=== PATIENT | female | born 1960 | race Caucasian/White ===

== ENCOUNTER 2016-10-21 11:36 | Emergency (ER) | payer BC ==
[~2016-10-21] VITALS: Ht 157.5 cm; Wt 69.8 kg
[~2016-10-21 11:36] MED LIST: ACET-1256 PO; ALBUAER19 INH; AMOX500C3 PO; ASPI81TA28 PO; ATOR-24 PO; BCTROWC TOP; DIPH25CA65 PO; LAMO200T38 PO; MONT1TAB3 PO; NZRCR TOP; OXYB5TAB74 PO; PRED20TA PO; PSEU30TA20 PO; QUET1TAB30 PO; TRIA1SPR4
[2016-10-21 11:47] VITALS: TEMP 37.2; O2SAT 97; Ht 157.5 cm; Wt 69.8 kg
[2016-10-21] MEDS ORDERED: DFL150 PO (12:23)
[2016-10-21] MEDS ORDERED: ATOR-54 PO (12:23)
[2016-10-21] MEDS ORDERED: QVRINH80 (12:23)
[2016-10-21] MEDS ORDERED: ZIPR60CA PO (12:23)
[2016-10-21] MEDS ORDERED: VNTHFA/IN INH (12:23)
[2016-10-21] MEDS ORDERED: CYM20 PO (12:23)
[2016-10-21] MEDS ORDERED: LORA10TA51 PO (12:23)
[2016-10-21] MEDS ORDERED: ACETAMINOPHEN 500 MG TAB PO STA (12:26)
[2016-10-21] MEDS ORDERED: SODIUM CHLORIDE 0.9% 1000ML 1,000 ML IV STA ×2 (12:26)
[2016-10-21 12:46] LABS: URINE APPEARANCE CLEAR (CLEAR); URINE BILIRUBIN NEG (NEG); URINE COLOR YELLOW; URINE NITRITE NEG (NEG); URINE PH 8.5 (4.5-7.5); URINE SPECIFIC GRAVITY 1.015 (1.000-1.030); UROBILINOGEN NEG (NEG); ZZUR CULT IF INDIC CLEAN CATCH NO
[2016-10-21 12:47] LABS: MANUAL MICROSCOPIC REQUIRED? NO; REVIEW REQ? NO
--- NOTE | 2016-10-21 12:50 | EMERGENCY ROOM VISIT NOTE ---
History Report prepared by Deja: Radha Mo Under the Supervision of: Dr. Zackary Blue M.D. First contact with patient: 12:19 Chief Complaint: ILLNESS Stated Complaint: HOT/COLD, CLAMMY, FAINT, EXHAUSTED, SHAKEY History of Present Illness The patient is a 56 year old female who presents to the Emergency Room with complaints of a constant generalized illness that began a week ago. The patient states that she has been having hot and cold flashes, clamminess, shakiness, irritability, and fatigue. She states that she feels like "something is not right". The patient states that her appetite has changed and her thirst has decreased. She denies any urinary symptoms, cough, sorethroat, and abdominal pain. The patient is on Cymbalta. Source of History: patient Onset: a week ago Associated Symptoms: + fatigue, No sorethroat, No cough, No abdominal pain, No urinary symptoms Note: The pt notes hot flashes followed by feeling cold, clamminess, shakiness, feeling irritable, Review of Systems See HPI for pertinent positives & negatives. A total of 10 systems reviewed and were otherwise negative. 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 (11) [place] Teeth Removal Family History FH: lung disease FHx: cancer Social History Smoking Status: Never Smoker Alcohol Use: none Marital Status: Housing Status: lives with family Occupation Status: employed Current/Historical Medications Scheduled Albuterol Hfa (Ventolin Hfa), 2-4 PUFFS INH Q6H Aspirin (Aspirin Ec), 81 MG PO QPM Atorvastatin (Lipitor), 20 MG PO HS Duloxetine HCl (Duloxetine HCl), 20 MG PO DAILY Fluconazole (Fluconazole), 150 MG PO DAILY Lamotrigine (Lamictal), 200 MG PO QAM Loratadine (Claritin), 10 MG PO DAILY Montelukast Sodium (Singulair), 10 MG PO QAM Ziprasidone Hcl (Geodon), 60 MG PO DAILY Scheduled PRN Amoxicillin (Amoxil), 2,000 MG PO UD PRN for dental visits Miscellaneous Medications Beclomethasone Dip (Qvar) Allergies Coded Allergies: Adhesives (Verified Allergy, Unknown, LOCAL RASH, 10/21/16) Aripiprazole (Verified Allergy, Unknown, MOOD SWINGS, 10/21/16) Imipramine (Verified Allergy, Unknown, RASH, 10/21/16) Paliperidone (Verified Allergy, Unknown, HYPERVENTILATING/EXCESSIVE YAWNING, 10/21/16) Risperidone (Verified Allergy, Unknown, ASTHMA ATTACK, 10/21/16) Sulfa Antibiotics (Verified Adverse Reaction, Mild, VOMITING, 10/21/16) Physical Exam Vital Signs Date Time Temp Pulse Resp B/P (MAP) Pulse Ox O2 Delivery O2 Flow Rate FiO2 10/21/16 14:34 71 22 120/64 10/21/16 13:53 61 20 118/75 10/21/16 13:15 69 20 118/66 71 115/64 90 111/65 10/21/16 13:09 64 10/21/16 12:56 66 19 109/62 10/21/16 11:47 37.2 76 20 131/68 97 Room Air Physical Exam GENERAL: Patient is in no acute distress. HEENT: No acute trauma, normocephalic atraumatic, mucous membranes moist, no nasal congestion, no scleral icterus. NECK: No stridor, no adenopathy, no meningismus, trachea is midline. LUNGS: Clear to auscultation bilaterally, no wheeze, no rhonchi, breath sounds equal. HEART: Without murmurs gallops or rubs, regular rate and rhythm. ABDOMEN: Soft, nontender, bowel sounds positive, no hernias, no peritonitis. EXTREMITIES: No cyanosis or edema, full range of motion of all the joints without pain or difficulty, no signs for acute trauma. NEUROLOGIC: Oriented x 3, no acute motor or sensory deficits, no focal weakness. SKIN: No rash, no jaundice, no diaphoresis. Medical Decision & Procedures ER Provider Diagnostic Interpretation: EKG shows a normal sinus rhythm with a rate of 61, no ischemia, no ectopy. Laboratory Results 10/21/16 12:05 Red Blood Count 4.75, Mean Corpuscular Volume 84.4, Mean Corpuscular Hemoglobin 29.1, Mean Corpuscular Hemoglobin Concent 34.4, Mean Platelet Volume 10.3, Neutrophils (%) (Auto) 67.2, Lymphocytes (%) (Auto) 19.3, Monocytes (%) (Auto) 9.4, Eosinophils (%) (Auto) 3.3, Basophils (%) (Auto) 0.6, Neutrophils # (Auto) 3.28, Lymphocytes # (Auto) 0.94, Monocytes # (Auto) 0.46, Eosinophils # (Auto) 0.16, Basophils # (Auto) 0.03 10/21/16 12:05 Test 10/21/16 12:00 10/21/16 12:05 Urine Color YELLOW Urine Appearance CLEAR (CLEAR) Urine pH 8.5 (4.5-7.5) Urine Specific [place] 1.015 (1.000-1.030) Urine Protein NEG (NEG) Urine Glucose (UA) NEG (NEG) Urine Ketones NEG (NEG) Urine Occult Blood NEG (NEG) Urine Nitrite NEG (NEG) Urine Bilirubin NEG (NEG) Urine Urobilinogen NEG (NEG) Urine Leukocyte Esterase NEG (NEG) White Blood Count 4.88 K/uL (4.8-10.8) Red Blood Count 4.75 M/uL (4.2-5.4) Hemoglobin 13.8 g/dL (12.0-16.0) Hematocrit 40.1 % (37-47) Mean Corpuscular Volume 84.4 fL (80-100) Mean Corpuscular Hemoglobin 29.1 pg (25-34) Mean Corpuscular Hemoglobin Concent 34.4 g/dl (32-36) Platelet Count 239 K/uL (130-400) Mean Platelet Volume 10.3 fL (7.4-10.4) Neutrophils (%) (Auto) 67.2 % Lymphocytes (%) (Auto) 19.3 % Monocytes (%) (Auto) 9.4 % Eosinophils (%) (Auto) 3.3 % Basophils (%) (Auto) 0.6 % Neutrophils # (Auto) 3.28 K/uL (1.4-6.5) Lymphocytes # (Auto) 0.94 K/uL (1.2-3.4) Monocytes # (Auto) 0.46 K/uL (0.11-0.59) Eosinophils # (Auto) 0.16 K/uL (0-0.5) Basophils # (Auto) 0.03 K/uL (0-0.2) RDW Standard Deviation 37.8 fL (36.4-46.3) RDW Coefficient of Variation 12.3 % (11.5-14.5) Immature Granulocyte % (Auto) 0.2 % Immature Granulocyte # (Auto) 0.01 K/uL (0.00-0.02) Anion Gap 5.0 mmol/L (3-11) Est Creatinine Clear Calc Drug Dose 86.9 ml/min Estimated GFR () 114.7 Estimated GFR (Non- 99.0 BUN/Creatinine Ratio 16.3 (10-20) Calcium Level 9.2 mg/dl (8.5-10.1) Magnesium Level 2.3 mg/dl (1.8-2.4) Total Bilirubin 0.5 mg/dl (0.2-1) Aspartate Amino Transf (AST/SGOT) 14 U/L (15-37) Alanine Aminotransferase (ALT/SGPT) 24 U/L (12-78) Alkaline Phosphatase 97 U/L (45-117) Total Creatine Kinase 62 U/L (26-192) Troponin I < 0.015 ng/ml (0-0.045) Total Protein 7.2 gm/dl (6.4-8.2) Albumin 3.9 gm/dl (3.4-5.0) Globulin 3.3 gm/dl (2.5-4.0) Albumin/Globulin Ratio 1.2 (0.9-2) Thyroid Stimulating Hormone (TSH) 1.280 uIu/ml (0.300-4.500) Human Chorionic Gonadotropin, Qual NEG (NEG) Laboratory results reviewed by me. Medications Administered Medications (Trade) Dose Ordered Sig/Hardik Route Start Time Stop Time Status Last Admin Dose Admin Sodium Chloride 1,000 ml @ 999 mls/hr Q1H1M STAT IV 10/21/16 12:26 10/21/16 13:26 DC 10/21/16 12:26 999 MLS/HR Sodium Chloride 1,000 ml @ 200 mls/hr Q5H STAT IV 10/21/16 12:26 10/21/16 15:05 DC 10/21/16 13:51 200 MLS/HR Acetaminophen (Tylenol Tab) 1,000 mg NOW STAT PO 10/21/16 12:26 10/21/16 12:30 DC 10/21/16 13:45 1,000 MG ED Course 1225: The patient was evaluated in room A9B. A complete history and physical exam was performed. 1226: Tylenol Tab 1000 mg PO, Sodium Chloride 1000 ml @ 200 mls/hr IV, Sodium Chloride 1000 ml @ 999 mls/hr IV. 1358: Orthostatic vital signs negative. 1540: Reevaluated the patient. Discussed results and discharge instructions: She verbalized understanding and agreement. The patient is ready for discharge. Medical Decision Differential diagnosis includes butt is not limited to: bacteremia, endocarditis , renal failure, thyroid disorder, diabetes, viral illness, electrolyte imbalance. There is no leukocytosis or concerning anemia. No significant electrolyte abnormality, kidney failure or hepatitis. The patient appears to be in a euthyroid state. EKG shows a sinus rhythm, no acute ischemia. Cardiac enzyme testing times one is not consistent with acute cardiac injury. Urinalysis does not show evidence for infection. testing is negative. The patient was not toxic or febrile. I did add on blood cultures, these results are pending. The patient was given oral Tylenol, she received IV saline, she has been resting comfortably. The cause for her complaints is unclear. This may be hormone imbalance from menopause. She may have a viral illness. She was reassured by her testing. Her biggest concern was new-onset diabetes. The patient is being discharged with outpatient family doctor follow-up. She can be called for positive blood culture results. [place] Drug Monitoring Program Search Results: patient reviewed within database, no issues identified Medication Reconcilliation Current Medication List: was personally reviewed by me Blood Pressure Screening Patient's blood pressure: Elevated blood pressure Blood pressure disposition: Elevated BP felt to be situational Impression Primary Impression: Weakness Additional Impression: Lightheadedness Scribe Attestation The scribe's documentation has been prepared under my direction and personally reviewed by me in its entirety. I confirm that the note above accurately reflects all work, treatment, procedures, and medical decision making performed by me. Departure Information Dispostion Home / Self-Care Referrals Marilyn Millard D.O. (PCP) Forms HOME CARE DOCUMENTATION FORM, IMPORTANT VISIT INFORMATION, WORK / SCHOOL INSTRUCTIONS Patient Instructions My [facility] [employer] Additional Instructions fluids rest follow with emeterio almazan later this week return if worsening all lab work today was ok Problem Qualifiers
[2016-10-21 12:56] LABS: BASO % 0.6 %; BASO ABS # 0.03 K/uL (0-0.2); COMPLETE YES; EOS % 3.3 %; HEMATOCRIT 40.1 % (37-47); IG% 0.2 %; LYMPH % 19.3 %; LYMPH ABS # 0.94 K/uL (1.2-3.4); MEAN CELL VOLUME 84.4 fL (80-100); MEAN CORPUSCULAR HEMOGLOBIN 29.1 pg (25-34); MEAN CORPUSCULAR HGB CONC 34.4 g/dl (32-36); MEAN PLATELET VOLUME 10.3 fL (7.4-10.4); MONO % 9.4 %; NEUT % 67.2 %; PLATELET COUNT 239 K/uL (130-400); RED BLOOD COUNT 4.75 M/uL (4.2-5.4); WHITE BLOOD COUNT 4.88 K/uL (4.8-10.8)
[2016-10-21 13:03] LABS: ALT/SGPT 24 U/L (12-78); BLOOD UREA NITROGEN 11 mg/dl (7-18); BUN/CREATININE RATIO 16.3 (10-20); CALCIUM 9.2 mg/dl (8.5-10.1); CARBON DIOXIDE 30 mmol/L (21-32); CHLORIDE 105 mmol/L (98-107); CREATININE 0.67 mg/dl (0.60-1.20); GLUCOSE 90 mg/dl (70-99); MAGNESIUM 2.3 mg/dl (1.8-2.4); POTASSIUM 3.9 mmol/L (3.5-5.1); SODIUM 140 mmol/L (136-145)
[2016-10-21 13:14] LABS: ALB/GLOB RATIO 1.2 (0.9-2); ALKALINE PHOSPHATASE 97 U/L (45-117); AST/SGOT 14 U/L (15-37)
[2016-10-21 13:34] LABS: PREG INTERNAL NEGATIVE QC NEG CLEAR BACKGROUND; PREG INTERNAL POSITIVE QC POS CONTROL LINE
[2016-10-21 14:34] VITALS: BP 120/64; PULSE 71
== END 2016-10-21 14:59 | disposition home or self-care (01) ==
LOC: C.EDB 11:38 → C.EDA 14:59
DX: R53.83 Other fatigue (principal); R42 Dizziness and giddiness; J45.909 Unspecified asthma, uncomplicated; F31.9 Bipolar disorder, unspecified; M17.9 Osteoarthritis of knee, unspecified; Z96.659 Presence of unspecified artificial knee joint; Z79.82 Long term (current) use of aspirin; Z79.899 Other long term (current) drug therapy; Z88.2 Allergy status to sulfonamides; Z88.8 Allergy status to other drugs, medicaments and biological substances; Z80.9 Family history of malignant neoplasm, unspecified

== ENCOUNTER 2017-03-18 10:25 | Emergency (ER) | payer BC ==
[~2017-03-18] VITALS: Ht 157.5 cm; Wt 72.3 kg
[~2017-03-18 10:25] MED LIST changes: -ACET-1256 PO; -ALBUAER19 INH; -ATOR-24 PO; +ATOR-54 PO; -BCTROWC TOP; +CYM20 PO; +DFL150 PO; -DIPH25CA65 PO; +LAMO200T35 PO; -LAMO200T38 PO; +LORA10TA51 PO; -NZRCR TOP; -OXYB5TAB74 PO; -PRED20TA PO; -PSEU30TA20 PO; -QUET1TAB30 PO; +QVRINH80; -TRIA1SPR4; +VNTHFA/IN INH; +ZIPR60CA PO
[2017-03-18 10:32] VITALS: TEMP 37.6; Ht 157.5 cm; Wt 72.3 kg
[2017-03-18] MEDS ORDERED: SODIUM CHLORIDE 0.9% 1000ML 1,000 ML IV STA (11:17)
[2017-03-18] MEDS ORDERED: ONDANSETRON INJ 2 MG/ML 2 ML VIAL IV STA (11:17)
[2017-03-18] MEDS ORDERED: FLUT0.15 NAE (11:21)
[2017-03-18] MEDS ORDERED: OPTIRAY 320 IV PRN (11:30)
--- NOTE | 2017-03-18 11:31 | EMERGENCY ROOM VISIT NOTE ---
History Report prepared by Deja: Max Meléndez Under the Supervision of: Dr. Edgar Norwood M.D. First contact with patient: 10:56 Chief Complaint: DIARRHEA Stated Complaint: DIARRHEA,GAS, BLOATING, Nursing Triage Summary: diarrhea started 2 weeks ago. feels bloated and gas History of Present Illness The patient is a 56 year old female who presents to the Emergency Room with complaints of persistent diarrhea for the past two weeks. She states that last night she had gas, diarrhea, lower abdominal pain, and she states that she had 6 bowel movements last night. The patient reports that she was seen at the [facility] two days ago, and her stool sample was negative for C Diff, Giardia, parasites, among others. She states that she does not have any cough, congestion, headache, dizziness, and hematochezia, though she states that her stool has been yellow. The patient states that she is currently nauseous, and she denies any vomiting. The patient denies any history of inflammatory bowel disease or Crohn's disease. She states that her mother currently has diverticulitis. Source of History: patient Onset: two weeks ago Position: other (global) Quality: other (diarrrhea) Timing: other (persistent) Associated Symptoms: + nausea, + abdominal pain, No cough, No hematochezia Review of Systems See HPI for pertinent positives and negatives. A total of ten systems were reviewed and were otherwise negative. 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 (11) [place] Teeth Removal Family History FH: lung disease FHx: cancer Social History Smoking Status: Never Smoker Alcohol Use: none Marital Status: Housing Status: lives with family Occupation Status: employed Current/Historical Medications Scheduled Albuterol Hfa (Ventolin Hfa), 2-4 PUFFS INH Q6H Aspirin (Aspirin Ec), 81 MG PO QPM Atorvastatin (Lipitor), 20 MG PO HS Ciprofloxacin Hcl (Cipro), 500 MG PO BID Duloxetine HCl (Duloxetine HCl), 20 MG PO DAILY Fluticasone Propionate (Nasal) (Flonase Allergy Relief), 50 MCG ALEISHA DIRECTED Lamotrigine (Lamictal), 200 MG PO QAM Metronidazole (Flagyl), 500 MG PO BID Montelukast Sodium (Singulair), 10 MG PO QAM Saccharomyces Boulardii (Florastor), 1 CAP PO BID Ziprasidone Hcl (Geodon), 60 MG PO DAILY Miscellaneous Medications Beclomethasone Dip (Qvar) Allergies Coded Allergies: Adhesives (Verified Allergy, Unknown, LOCAL RASH, 03/18/17) Aripiprazole (Verified Allergy, Unknown, MOOD SWINGS, 03/18/17) Imipramine (Verified Allergy, Unknown, RASH, 03/18/17) Paliperidone (Verified Allergy, Unknown, HYPERVENTILATING/EXCESSIVE YAWNING, 03/18/17) Risperidone (Verified Allergy, Unknown, ASTHMA ATTACK, 03/18/17) Sulfa Antibiotics (Verified Adverse Reaction, Mild, VOMITING, 03/18/17) Physical Exam Vital Signs Date Time Temp Pulse Resp B/P (MAP) Pulse Ox O2 Delivery O2 Flow Rate FiO2 03/18/17 14:07 81 16 108/62 96 03/18/17 12:55 75 16 110/54 98 Room Air 03/18/17 11:57 85 18 104/61 94 Room Air 03/18/17 10:32 37.6 100 18 110/72 98 Room Air Physical Exam GENERAL: Awake, alert, fatigued-appearing, in no distress HENT: Normocephalic, atraumatic. Oropharynx unremarkable. Dry cracked mucous membranes. EYES: Normal conjunctiva. Sclera non-icteric. NECK: Supple. No nuchal rigidity. FROM. No JVD. RESPIRATORY: Clear to auscultation. CARDIAC: Regular rate, normal rhythm. Extremities warm and well perfused. Pulses equal. ABDOMEN: Mild left lower quadrant tenderness. No pectineal signs. Soft, non- distended. No rebound or guarding. No masses. RECTAL: Deferred. MUSCULOSKELETAL: Chest examination reveals no tenderness. The back is symmetrical on inspection without obvious abnormality. There is no CVA tenderness to palpation. No joint edema. LOWER EXTREMITIES: Calves are equal size bilaterally and non-tender. No edema. No discoloration. NEURO: Normal sensorium. No sensory or motor deficits noted. SKIN: No rash or jaundice noted. Medical Decision & Procedures ER Provider Diagnostic Interpretation: Radiology results as stated below per my review and radiologist interpretation: ABDOMEN AND PELVIS CT WITH IV CONTRAST CT DOSE: 303.22 mGy.cm HISTORY: Acute left lower quadrant abdominal pain with diarrhea LLQ pain, diarrhea TECHNIQUE: Multiaxial CT images of the abdomen and pelvis were performed following the use of intravenous contrast. A dose lowering technique was utilized adhering to the principles of ALARA. COMPARISON STUDY: None. FINDINGS: Imaged inferior cardiac chambers appear mildly enlarged. Mild dependent subsegmental bibasilar atelectasis. No pneumatosis or pneumoperitoneum identified. Low attenuating indeterminate 4 mm lesion of the left hepatic lobe is too small to characterize on image 20 series 2 however statistically would favor a benign entity such as a hepatic cyst. Liver is otherwise unremarkable. No intrahepatic biliary ductal dilation. The spleen, pancreas and adrenal glands are unremarkable. Gallbladder is mildly contracted. There are 2 nonobstructing calculi of the inferior pole left kidney measuring up to 4 mm. Exophytic low attenuating lesion of the posterior aspect inferior pole left kidney measuring 5 mm is too small to characterize however suggests renal cyst. The right kidney is unremarkable. The ureters are within normal limits. Urinary bladder is partially collapsed. Uterus is unremarkable. Moderate atherosclerosis of the aorta with indeterminate calcifications seen anterior to the distal esophagus. No bulky adenopathy. Mildly prominent nonenlarged left aortic lymph node are seen measuring up to 8 mm which may be physiologic. There is no bowel obstruction. No evidence of significant diverticulosis or diverticulitis of the colon. The appendix appears noninflamed. 3 mm calcification is seen near the appendiceal tip on image 299 series 3 suggesting small appendicolith. There is suggestion of mild wall thickening in the distribution of the mid and distal portions of the sigmoid colon. Nonspecific mildly prominent right lower quadrant mesenteric lymph nodes measure up to 5 mm, likely physiologic. Soft tissues are unremarkable. The bones appear intact. Chronic pars defects at L5 with 12 mm anterolisthesis L5 on S1. IMPRESSION: 1. Mild wall thickening of the mid and distal sigmoid colon may be secondary to partial distention or reflect sequela of a mild colitis. No evidence of significant colonic diverticulosis or acute diverticulitis. 2. No bowel obstruction. 3. 3 mm appendicolith without evidence of acute appendicitis. 4. Chronic bilateral pars defects at L5 with 12 mm anterolisthesis L5 on S1. Electronically signed by: Gil Ramírez M.D. 03/18/2017 12:43 PM Dictated Date/Time: 03/18/2017 12:32 PM Laboratory Results 03/18/17 11:04 Red Blood Count 4.87, Mean Corpuscular Volume 85.8, Mean Corpuscular Hemoglobin 29.2, Mean Corpuscular Hemoglobin Concent 34.0, Mean Platelet Volume 9.7, Neutrophils (%) (Auto) 81.7, Lymphocytes (%) (Auto) 10.5, Monocytes (%) (Auto) 7.2, Eosinophils (%) (Auto) 0.2, Basophils (%) (Auto) 0.2, Neutrophils # (Auto) 3.97, Lymphocytes # (Auto) 0.51, Monocytes # (Auto) 0.35, Eosinophils # (Auto) 0.01, Basophils # (Auto) 0.01 03/18/17 11:04 Test 03/18/17 11:04 03/18/17 11:35 03/18/17 12:27 White Blood Count 4.86 K/uL (4.8-10.8) Red Blood Count 4.87 M/uL (4.2-5.4) Hemoglobin 14.2 g/dL (12.0-16.0) Hematocrit 41.8 % (37-47) Mean Corpuscular Volume 85.8 fL (80-100) Mean Corpuscular Hemoglobin 29.2 pg (25-34) Mean Corpuscular Hemoglobin Concent 34.0 g/dl (32-36) Platelet Count 195 K/uL (130-400) Mean Platelet Volume 9.7 fL (7.4-10.4) Neutrophils (%) (Auto) 81.7 % Lymphocytes (%) (Auto) 10.5 % Monocytes (%) (Auto) 7.2 % Eosinophils (%) (Auto) 0.2 % Basophils (%) (Auto) 0.2 % Neutrophils # (Auto) 3.97 K/uL (1.4-6.5) Lymphocytes # (Auto) 0.51 K/uL (1.2-3.4) Monocytes # (Auto) 0.35 K/uL (0.11-0.59) Eosinophils # (Auto) 0.01 K/uL (0-0.5) Basophils # (Auto) 0.01 K/uL (0-0.2) RDW Standard Deviation 40.0 fL (36.4-46.3) RDW Coefficient of Variation 12.8 % (11.5-14.5) Immature Granulocyte % (Auto) 0.2 % Immature Granulocyte # (Auto) 0.01 K/uL (0.00-0.02) Anion Gap 6.0 mmol/L (3-11) Est Creatinine Clear Calc Drug Dose 83.4 ml/min Estimated GFR () 111.1 Estimated GFR (Non- 95.9 BUN/Creatinine Ratio 14.3 (10-20) Calcium Level 9.1 mg/dl (8.5-10.1) Total Bilirubin 0.4 mg/dl (0.2-1) Direct Bilirubin 0.1 mg/dl (0-0.2) Aspartate Amino Transf (AST/SGOT) 20 U/L (15-37) Alanine Aminotransferase (ALT/SGPT) 31 U/L (12-78) Alkaline Phosphatase 86 U/L (45-117) Total Protein 6.8 gm/dl (6.4-8.2) Albumin 3.8 gm/dl (3.4-5.0) Lipase 201 U/L (73-393) Urine Color YELLOW Urine Appearance CLEAR (CLEAR) Urine pH 6.0 (4.5-7.5) Urine Specific [place] 1.017 (1.000-1.030) Urine Protein NEG (NEG) Urine Glucose (UA) NEG (NEG) Urine Ketones NEG (NEG) Urine Occult Blood NEG (NEG) Urine Nitrite NEG (NEG) Urine Bilirubin NEG (NEG) Urine Urobilinogen NEG (NEG) Urine Leukocyte Esterase SMALL (NEG) Urine WBC (Auto) 1-5 /hpf (0-5) Urine RBC (Auto) 0-4 /hpf (0-4) Urine Hyaline Casts (Auto) 1-5 /lpf (0-5) Urine Epithelial Cells (Auto) >30 /lpf (0-5) Urine Bacteria (Auto) NEG (NEG) Influenza Type A Antigen Neg for Influ A (NEG) Influenza Type B Antigen Neg for Influ B (NEG) Lactic Acid Level 0.4 mmol/L (0.4-2.0) Laboratory results reviewed by me Medications Administered Medications (Trade) Dose Ordered Sig/Hardik Route Start Time Stop Time Status Last Admin Dose Admin Sodium Chloride 1,000 ml @ 999 mls/hr Q1H1M STAT IV 03/18/17 11:17 03/18/17 12:35 DC 03/18/17 11:56 999 MLS/HR Ondansetron HCl (Zofran Inj) 4 mg NOW STAT IV 03/18/17 11:17 03/18/17 11:20 DC 03/18/17 11:56 4 MG Ciprofloxacin (Cipro Tab) 500 mg NOW STAT PO 03/18/17 13:47 03/18/17 13:48 DC 03/18/17 13:55 500 MG Metronidazole (Flagyl Tab) 500 mg NOW STAT PO 03/18/17 13:47 03/18/17 13:48 DC 03/18/17 13:55 500 MG ED Course 1112: The patient was evaluated in room C8. A complete history and physical exam was performed. 1340: I reevaluated the patient. Discussed results and discharge instructions: she verbalized understanding and agreement. The patient is ready for discharge. Medical Decision I reviewed the patient's past medical history, medications, and the nursing notes as described above. The patient's presentation and history were concerning for etiologies such as appendicitis, diverticulitis, PUD, biliary pathology, UTI, pancreatitis, obstruction, mesenteric ischemia, aortic pathology, infections, inflammatory bowel disease, renal colic, as well as others were entertained. The patient is a 56 y/o woman presents to the emergency department with diarrhea x 2 weeks in the setting of negative stool studies by pcp last week per HPI. Reports mucousy stools. Denies bloody or black stools. Denies h/o or fmhx of IBD. On arrival the patient is in NAD, AFVSS. Mild LLQ ttp. No peritoneal signs. Labs unremarkable including wbc and lactate wnl. UA negative. CT demonstrates mild sigmoid colitis. Given the patient's reports of negative stool studies with pcp but with persistent diarrhea for 2 weeks it is reasonable to attempt trial of Cipro/flagyl. Risk of c-diff d/w patient but agreeable to try antibiotics. Will also given probiotic. Findings and plan for follow-up reviewed with patient. Patient agreeable and d/c'd per discharge instructions. Medication Reconcilliation Current Medication List: was personally reviewed by me Blood Pressure Screening Patient's blood pressure: Normal blood pressure Impression Primary Impression: Colitis Scribe Attestation The scribe's documentation has been prepared under my direction and personally reviewed by me in its entirety. I confirm that the note above accurately reflects all work, treatment, procedures, and medical decision making performed by me. Departure Information Dispostion Home / Self-Care Prescriptions Saccharomyces Boulardii (Florastor) 250 Mg Cap 1 CAP PO BID for 10 Days, #20 CAP Prov: Edgar Norwood M.D. 03/18/17 Metronidazole (Flagyl) 500 Mg Tab 500 MG PO BID for 10 Days, #20 TAB Prov: Edgar Norwood M.D. 03/18/17 Ciprofloxacin Hcl (CIPRO) 500 Mg Tab 500 MG PO BID for 5 Days, #10 TAB Prov: Edgar Norwood M.D. 03/18/17 Referrals Marilyn Millard D.O. (PCP) Forms HOME CARE DOCUMENTATION FORM, IMPORTANT VISIT INFORMATION, WORK / SCHOOL INSTRUCTIONS Patient Instructions ED Gastroenteritis Bacterial, ED Gastroenteritis Viral, My [facility] Additional Instructions Please follow up with your primary care physician in the next 1-3 days for re- evaluation and possible GI referral if symptoms do not improve. You were found to have a colitis. Otherwise, your exam, CT scan, and lab results did not show signs of an emergent condition at this time. Acetaminophen or ibuprofen for pain and fevers as needed. Ciprofloxacin and metronidazole as directed. Florastor, probiotic to help prevent antibiotic associated diarrhea. Drink plenty of fluids to ensure hydration. Return to the emergency department for worsening symptoms as described in the accompanying instructions.
[2017-03-18 11:37] LABS: BASO % 0.2 %; BASO ABS # 0.01 K/uL (0-0.2); EOS % 0.2 %; EOS ABS # 0.01 K/uL (0-0.5); HEMATOCRIT 41.8 % (37-47); HEMOGLOBIN 14.2 g/dL (12.0-16.0); IG# 0.01 K/uL (0.00-0.02); LYMPH % 10.5 %; LYMPH ABS # 0.51 K/uL (1.2-3.4); MEAN CELL VOLUME 85.8 fL (80-100); MEAN CORPUSCULAR HEMOGLOBIN 29.2 pg (25-34); MEAN PLATELET VOLUME 9.7 fL (7.4-10.4); MONO % 7.2 %; MONO ABS # 0.35 K/uL (0.11-0.59); NEUT % 81.7 %; NEUT ABS # 3.97 K/uL (1.4-6.5); PLATELET COUNT 195 K/uL (130-400); RED CELL DISTRIBUTION WIDTH CV 12.8 % (11.5-14.5); WHITE BLOOD COUNT 4.86 K/uL (4.8-10.8)
[2017-03-18 11:47] LABS: ALBUMIN 3.8 gm/dl (3.4-5.0); CALCIUM 9.1 mg/dl (8.5-10.1); CREATININE 0.71 mg/dl (0.60-1.20); POTASSIUM 3.4 mmol/L (3.5-5.1)
[2017-03-18 11:49] LABS: TOTAL PROTEIN 6.8 gm/dl (6.4-8.2)
[2017-03-18 12:22] LABS: INFLUENZA B ANTIGEN Neg for Influ B (NEG)
--- NOTE | 2017-03-18 12:44 | DIAGNOSTIC IMAGING REPORT ---
ABDOMEN AND PELVIS CT WITH IV CONTRAST CT DOSE: 303.22 mGy.cm HISTORY: Acute left lower quadrant abdominal pain with diarrhea LLQ pain, diarrhea TECHNIQUE: Multiaxial CT images of the abdomen and pelvis were performed following the use of intravenous contrast. A dose lowering technique was utilized adhering to the principles of ALARA. COMPARISON STUDY: None. FINDINGS: Imaged inferior cardiac chambers appear mildly enlarged. Mild dependent subsegmental bibasilar atelectasis. No pneumatosis or pneumoperitoneum identified. Low attenuating indeterminate 4 mm lesion of the left hepatic lobe is too small to characterize on image 20 series 2 however statistically would favor a benign entity such as a hepatic cyst. Liver is otherwise unremarkable. No intrahepatic biliary ductal dilation. The spleen, pancreas and adrenal glands are unremarkable. Gallbladder is mildly contracted. There are 2 nonobstructing calculi of the inferior pole left kidney measuring up to 4 mm. Exophytic low attenuating lesion of the posterior aspect inferior pole left kidney measuring 5 mm is too small to characterize however suggests renal cyst. The right kidney is unremarkable. The ureters are within normal limits. Urinary bladder is partially collapsed. Uterus is unremarkable. Moderate atherosclerosis of the aorta with indeterminate calcifications seen anterior to the distal esophagus. No bulky adenopathy. Mildly prominent nonenlarged left aortic lymph node are seen measuring up to 8 mm which may be physiologic. There is no bowel obstruction. No evidence of significant diverticulosis or diverticulitis of the colon. The appendix appears noninflamed. 3 mm calcification is seen near the appendiceal tip on image 299 series 3 suggesting small appendicolith. There is suggestion of mild wall thickening in the distribution of the mid and distal portions of the sigmoid colon. Nonspecific mildly prominent right lower quadrant mesenteric lymph nodes measure up to 5 mm, likely physiologic. Soft tissues are unremarkable. The bones appear intact. Chronic pars defects at L5 with 12 mm anterolisthesis L5 on S1. IMPRESSION: 1. Mild wall thickening of the mid and distal sigmoid colon may be secondary to partial distention or reflect sequela of a mild colitis. No evidence of significant colonic diverticulosis or acute diverticulitis. 2. No bowel obstruction. 3. 3 mm appendicolith without evidence of acute appendicitis. 4. Chronic bilateral pars defects at L5 with 12 mm anterolisthesis L5 on S1. Electronically signed by: Gil Ramírez M.D. 03/18/2017 12:43 PM Dictated Date/Time: 03/18/2017 12:32 PM
[2017-03-18] MEDS ORDERED: CIPROFLOXACIN 500 MG TAB PO STA (13:47)
[2017-03-18] MEDS ORDERED: METRONIDAZOLE 250 MG TAB PO STA (13:47)
[2017-03-18] MEDS ORDERED: SACC250C3 PO (13:52)
[2017-03-18] MEDS ORDERED: METR-163 PO (13:52)
[2017-03-18] MEDS ORDERED: CIPR-255 PO (13:52)
[2017-03-18 14:07] VITALS: BP 108/62; PULSE 81; O2SAT 96
== END 2017-03-18 14:15 | disposition home or self-care (01) ==
LOC: C.EDB 10:28 → C.EDC 14:15
DX: K52.9 Noninfective gastroenteritis and colitis, unspecified (principal); J45.909 Unspecified asthma, uncomplicated; M17.12 Unilateral primary osteoarthritis, left knee; F31.9 Bipolar disorder, unspecified; Z87.01 Personal history of pneumonia (recurrent); Z96.659 Presence of unspecified artificial knee joint; Z80.9 Family history of malignant neoplasm, unspecified; Z79.82 Long term (current) use of aspirin; Z79.899 Other long term (current) drug therapy